=== PATIENT | male | born 1955 | race Caucasian/White ===

== ENCOUNTER → 2018-06-22 | Outpatient (REF) | payer MEDICARE ==
[~2018-06-22] MED LIST: COUMADIN4 MG PO; COZAAR100 MG PO; METOPROL TAR25 M1 PO; PLAVIX75 MG PO; SIMVASTATIN40 MG PO; VICTOZA18 MG/3 ML SC
== END | disposition home or self-care (01) ==
LOC: STRESS 08:42 → NUCMED 09:00
PROVIDERS: ATTEND Internal Medicine
DX: I20.9 Angina pectoris, unspecified (principal); R06.09 Other forms of dyspnea; I25.118 Atherosclerotic heart disease of native coronary artery with other forms of angina pectoris
CPT/HCPCS: A9502; J2785

== ENCOUNTER 2021-10-01 06:50 | Observation (INO) | payer MEDICARE ==
[2021-10-01] VITALS (24 sets, daily range): BP systolic 140–188; BP diastolic 78–104
[~2021-10-01] VITALS: Ht 185.4 cm; Wt 156.0 kg
[2021-10-01 07:36] LABS: HEMATOCRIT 43.3 % (39.0-50.0); HEMOGLOBIN 14.5 g/dl (14.0-18.0); IMMATURE GRANULOCYTES 0.2 % (0.0-5.0); MEAN CORPUSCULAR HGB 31.5 pG CALC (26.0-32.0); MEAN CORPUSCULAR HGB CONC 33.5 g/dL CAL (32.0-36.0); NEUT# 9.38 thou/uL (1.82-7.42); RED BLOOD COUNT 4.6 mill/uL (4.70-6.10); RED CELL DISTRI WIDTH 13.4 % (11.5-15.5)
[2021-10-01 07:42] LABS: MEAN CELL VOLUME 94.1 fL CALC (80.0-100.0)
[2021-10-01 08:02] LABS: PROTHROMBIN TIME 19.8 SECONDS (9.0-12.5)
[2021-10-01 08:06] LABS: ALBUMIN 4.2 g/dL (3.2-5.0); ALKALINE PHOSPHATASE 66 u/l (38-126); ANION GAP 13 (6-22 (CALC)); BILIRUBIN, TOTAL 0.5 mg/dL (0.0-1.4); BUN 12 mg/dL (8-23); BUN/CREATININE RATIO 15 (12-20 (CALC)); CARBON DIOXIDE 30 mmol/l (22-30); CHLORIDE 99 mmol/l (95-108); CREATININE 0.8 mg/dL (0.7-1.3); GFR FOR AFR.AMER. > 60 ML/MIN (>=60 (CALC)); GFR OTHER RACES > 60 ML/MIN (>=60 (CALC)); POTASSIUM 4.2 mmol/l (3.5-5.1); SGOT/AST 68 u/l (19-48); SODIUM 137 mmol/l (137-146); TOTAL PROTEIN 7.4 g/dL (6.3-8.2)
[2021-10-01 08:17] LABS: MYOGLOBIN 36 ng/mL (0 - 121)
[2021-10-01] MEDS ORDERED: AMLODIPINE BESYL5 MG PO (11:11)
== END 2021-10-01 12:22 | disposition home or self-care (01) ==
LOC: ED 06:50 → ED-I 10:01
PROVIDERS: Emergency Medicine; ADMIT Hospitalist; ATTEND Hospitalist
DX: I16.0 Hypertensive urgency (principal); I10 Essential (primary) hypertension; E11.9 Type 2 diabetes mellitus without complications; I48.91 Unspecified atrial fibrillation; Z79.01 Long term (current) use of anticoagulants; Z20.822 Contact with and (suspected) exposure to COVID-19

== ENCOUNTER 2022-08-18 08:48 | Emergency (ER) | payer MEDICARE ==
[~2022-08-18] VITALS: Ht 185.4 cm; Wt 155.9 kg
[~2022-08-18 08:48] MED LIST changes: +AMLODIPINE BESYL5 MG PO; +ASPIRIN81 MG PO; +LABETALOL HYDR200 MG PO; +LASIX 20 MG TAB20 MG PO; +METFORMIN500 M2 PO; +NORVASC10 M1 PO; +RYBELSUS7 MG IN; +[UNRECOGNIZED DRUG - OTHER] IJ; +[UNRECOGNIZED DRUG - OTHER] IN
[2022-08-18 09:40] VITALS: BP 150/87
== END 2022-08-18 09:55 | disposition home or self-care (01) ==
LOC: ED 08:48
DX: I10 Essential (primary) hypertension (principal); E11.9 Type 2 diabetes mellitus without complications; I48.91 Unspecified atrial fibrillation; I25.10 Atherosclerotic heart disease of native coronary artery without angina pectoris; Z95.5 Presence of coronary angioplasty implant and graft; Z79.84 Long term (current) use of oral hypoglycemic drugs; Z79.4 Long term (current) use of insulin